=== PATIENT | male | born 1995 | race Caucasian/White ===

== ENCOUNTER 2024-08-06 09:52 | Inpatient (IN) | payer BC, MEDICAID ==
[~2024-08-06] VITALS: Ht 182.9 cm; Wt 79.3 kg
[2024-08-06] MEDS: ADENOSINE 6 MG/2 ML INJ IV ONE ×3 (10:15→10:19)
--- NOTE | 2024-08-06 10:20 | ECG ---
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
--- NOTE | 2024-08-06 10:46 | ED.PDOC ---
History of Present Illness HPI Comments 29-year-old male with PMHx Anxiety presents with a chief complaint of palpitations and anxiety. Patient states that onset of symptoms began at 0530 after he worked out. Patient reports that he did not drink any caffeine this morning, nor did he take any pre-workout supplementals. Patient mentions that this has happened to him twice before and he states that he thought it was anxiety. Patients HR is in the 220's. Chief Complaint: Chest Pain Time Seen by MD: 10:01 Primary Care Provider: LUZ Blake Notes: Medications, Allergies Allergies: Coded Allergies: Penicillins (Verified Allergy, Unknown, 07/17/23) Information Source: Patient Mode of Arrival: Ambulatory Severity: Moderate Timing: Hours Duration: Since onset Prehospital treatment: None Past Medical History PAST MEDICAL HISTORY: Anxiety Surgical History: Denies all surgeries Family History Family History: Reviewed,noncontributory to illness Social History Smoker: Non-Smoker Alcohol: Occasionally Drugs: Denies Drug Use Lives In: Home Constitutional: denies: chills, diaphoresis, fatigue, fever, malaise, sweats, weakness, others EENTM: denies: blurred vision, double vision, ear bleeding, ear discharge, ear drainage, ear pain, ear ringing, eye pain, eye redness, hearing loss, mouth pain, mouth swelling, nasal discharge, nose bleeding, nose congestion, nose pain, photophobia, tearing, throat pain, throat swelling, voice changes, others Respiratory: denies: cough, hemoptysis, orthopnea, SOB at rest, shortness of breath, SOB with excertion, stridor, wheezing, others Cardiovascular: reports: others (SVT); denies: chest pain, dizzy spells, diaphoresis, Dyspnea on exertion, edema, irregular heart beat, left arm pain, lightheadedness, palpitations, PND, syncope Gastrointestinal: denies: abdomen distended, abdominal pain, blood streaked bowels, constipated, diarrhea, dysphagia, difficulty swallowing, hematemesis, melena, nausea, poor appetite, poor fluid intake, rectal bleeding, rectal pain, vomiting, others Genitourinary: denies: burning, dysuria, flank pain, frequency, hematuria, incontinence, penile discharge, penile sore, pain, testicle pain, testicle swelling, urgency, others Neurological: denies: dizziness, fainting, headache, left sided numbness, left sided weakness, numbness, paresthesia, pre-existing deficit, right sided numbness, right sided weakness, seizure, speech problems, tingling, tremors, weakness, others Musculoskeletal: denies: back pain, gout, joint pain, joint swelling, muscle pain, muscle stiffness, neck pain, others Integumetry: denies: bruises, change in color, change in hair/nails, dryness, laceration, lesions, lumps, rash, wounds, others Allergic/Immunocompromised: denies: Difficulty Healing, Frequent Infections, Hives, Itching, others Hematologic/Lymphatic: denies: anemia, blood clots, easy bleeding, easy bruising, swollen glands, others Endocrine: denies: excessive hunger, excessive sweating, excessive thirst, excessive urination, flushing, intolerance to cold, intolerance to heat, unexplained weight gain, unexplained weight loss, others Psychiatric: reports: anxiety; denies: bipolar disorder, depression, hopeless, panic disorder, schizophrenia, sleepless, suicidal, others All Other Systems: Reviewed and Negative Physical Exam General Appearance: No Apparent Distress, Thin, Other (ANXIOUS ) HEENT: Normal ENT Inspection, Pharynx Normal, TMs Normal Neck: Full Range of Motion, Non-Tender, Normal, Normal Inspection Respiratory: Chest Non-Tender, Lungs Clear, No Accessory Muscle Use, No Respiratory Distress, Normal Breath Sounds Cardiovascular: No Edema, No JVD, No Murmur, No Gallop, Normal Peripheral Pulses, Regular Rate/Rhythm Breast Exam: Deferred Gastrointestinal: No Organomegaly, Non Tender, No Pulsatile Mass, Normal Bowel Sounds, Soft Genitalia: Deferred Pelvic: Deferred Rectal: Deferred Extremities: No calf tenderness, Normal capillary refill, Normal inspection, Normal range of motion, Non-tender, No pedal edema Musculoskeletal : Apperance: Normal Neurologic: Alert, legal process specialist II-XII nml as Tested, No Motor Deficits, Normal Affect, Normal Mood, No Sensory Deficits Cerebellar Function: Normal Reflexes: Normal Skin: Dry, Normal Color, Warm Lymphatic: No Adenopathy Was a procedure done? Was a procedure done?: No Differential Dx Considerations may include: SVT, electrolyte abnormality, infectious etiology who X-Ray, Labs, Meds, VS Vital Signs Date Time Temp Pulse Resp B/P (MAP) Pulse Ox O2 Delivery O2 Flow Rate FiO2 6/16/25 13:05 109 08/06/24 12:00 104 08/06/24 10:17 125 08/06/24 10:10 97.9 209 26 161/75 (103) 98 97.9 08/06/24 09:59 200 Lab Test 08/06/24 11:42 08/06/24 10:14 Range/Units Troponin I High Sensitivity 40 9 </=54 ng/L White Blood Count 8.0 4.4-10.8 10^3/uL Red Blood Count 5.60 4.5-5.90 10^6/uL Hemoglobin 17.1 13.5-17.5 g/dL Hematocrit 48.5 41.0-53.0 % Mean Corpuscular Volume 86.6 80.0-100.0 fL Mean Corpuscular Hemoglobin 30.5 28.0-32.0 pg Mean Corpuscular Hemoglobin Concent 35.2 32.0-36.0 g/dL Red Cell Distribution Width 13.2 11.8-14.3 % Platelet Count 252 140-450 10^3/uL Mean Platelet Volume 7.2 6.9-10.8 fL Neutrophils (%) (Auto) 66.4 37.0-80.0 % Lymphocytes (%) (Auto) 24.2 10.0-50.0 % Monocytes (%) (Auto) 6.7 0.0-12.0 % Eosinophils (%) (Auto) 2.2 0.0-7.0 % Basophils (%) (Auto) 0.5 0.0-2.0 % Neutrophils # (Auto) 5.3 1.6-8.6 10 ^3/uL Lymphocytes # (Auto) 1.9 0.4-5.4 10 ^3/uL Monocytes # (Auto) 0.5 0-1.3 10 ^3/uL Eosinophils # (Auto) 0.2 0-0.8 10 ^3/uL Basophils # (Auto) 0 0-0.2 10 ^3/uL Nucleated Red Blood Cells 0.2 % Sodium Level 142 136-145 mmol/L Potassium Level 3.4 L 3.5-5.1 mmol/L Chloride Level 105 98-107 mmol/L Carbon Dioxide Level 25 20-31 mmol/L Anion Gap 12 5-15 Blood Urea Nitrogen 8 L 9-23 mg/dL Creatinine 1.25 0.700-1.30 mg/dL Glomerular Filtration Rate Calc 80 >90 mL/min BUN/Creatinine Ratio 6.4 L 10.0-20.0 Serum Glucose 125 H 74-106 mg/dL Calcium Level 10.2 8.7-10.4 mg/dL Current Medications Medications (Trade) Dose Ordered Sig/Sherrie Route Start Time Stop Time Status Last Admin Adenosine (Adenosine) 6 mg ONCE ONCE IV 08/06/24 10:45 08/06/24 10:46 DC 08/06/24 10:15 Adenosine (Adenosine) 12 mg ONCE ONCE IV 08/06/24 10:45 08/06/24 10:46 DC 08/06/24 10:16 Time of 1ST Reevaluation: 10:31 Reevaluation 1ST: Unchanged Patient Education/Counseling: Diagnosis, Treatment, Need For Follow Up Family Education/Counseling: Diagnosis, Treatment, Need For Follow Up Departure 1 Departure Time of Disposition: 13:35 (Patient presented SVT. Patient received adenosine x2 and his symptoms resolved. We will discharge patient with outpatient follow up) Impression: Primary Impression: SVT (supraventricular tachycardia) Disposition: 01 HOME / SELF CARE / HOMELESS Condition: Stable Additional Instructions: You has supraventricular tachycardia. We gave you adenosine to convert your heart back to normal sinus rhythm. It is important to stay well hydrated and well rested. You should follow up with the regular doctor next week. If your symptoms worsen or if any other concerns please return to the emergency room. Discharged With: Self Critical Care Note Critical Care Time?: Yes Critical care comment: SVT Authorized and Performed by: Javier Lazo MD Total critical care time: Approximately 37 minutes Due to a high probability of clinically significant, life threatening deterioration, the patient required my highest level of preparedness to intervene emergently and I personally spent this critical care time directly and personally managing the patient. This critical care time included obtaining a history; examining the patient; pulse oximetry; ordering and review of studies; arranging urgent treatment with development of a management plan; evaluation of patient's response to treatment; frequent reassessment; and, discussions with other providers. This critical care time was performed to assess and manage the high probability of imminent, life-threatening deterioration that could result in multi-organ failure. It was exclusive of separately billable procedures and treating other patients and teaching time. Please see my other sections and the rest of the note for further information on patient assessment and treatment. Stability Stability form required: No Heart Score Heart Score: Heart Score Response (Comments) Value History N/A 0 EKG N/A 0 Age N/A 0 Risk Factors N/A 0 Troponin N/A 0 Total 0 I personally scribed for JAVIER LAZO MD ([email or web address]) on 08/06/24 at 10:46. Electronically submitted by Chester Crabtree ([email or web address]). JAVIER LAZO MD Aug 06, 2024 10:46
--- NOTE | 2024-08-06 10:53 | DVH ---
CHEST RADIOGRAPH Indication: palpitations Technique: Single frontal view of the chest was obtained COMPARISON: None FINDINGS: Lines and Tubes: None Lungs: Clear Pleura: No effusion. No pneumothorax. Cardiomediastinal contours: Unremarkable Bones: Unremarkable IMPRESSION: No acute disease.
[2024-08-06 11:36] LABS: Chloride 105 mmol/L (98-107); Sodium 142 mmol/L (136-145)
[2024-08-06 11:37] LABS: Anion Gap 12 (5-15); Calcium 10.2 mg/dL (8.7-10.4); Carbon Dioxide 25 mmol/L (20-31)
[2024-08-06 11:38] LABS: Potassium 3.4 mmol/L (3.5-5.1)
[2024-08-06 11:41] LABS: Basophils # (auto) 0 10 ^3/uL (0-0.2); Basophils % (auto) 0.5 % (0.0-2.0); Eosinophils # (auto) 0.2 10 ^3/uL (0-0.8); Eosinophils % (auto) 2.2 % (0.0-7.0); Hematocrit 48.5 % (41.0-53.0); Hemoglobin 17.1 g/dL (13.5-17.5); Lymphocytes # (auto) 1.9 10 ^3/uL (0.4-5.4); Lymphocytes % (auto) 24.2 % (10.0-50.0); Mean Corpuscular Hemoglobin 30.5 pg (28.0-32.0); Mean Corpuscular Hgb Conc. 35.2 g/dL (32.0-36.0); Mean Corpuscular Volume 86.6 fL (80.0-100.0); Monocytes # (auto) 0.5 10 ^3/uL (0-1.3); Monocytes % (auto) 6.7 % (0.0-12.0); Neutrophils # (auto) 5.3 10 ^3/uL (1.6-8.6); Neutrophils % (auto) 66.4 % (37.0-80.0); Nucleated Red Blood Cells % 0.2 %; Platelet Count (auto) 252 10^3/uL (140-450); Red Cell Distribution Width 13.2 % (11.8-14.3)
[2024-08-06 11:42] LABS: BUN/Creatinine Ratio 6.4 (10.0-20.0)
[2024-08-06 11:43] LABS: Blood Urea Nitrogen 8 mg/dL (9-23); Glucose 125 mg/dL (74-106)
--- NOTE | 2024-08-06 14:15 | ECG ---
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
--- NOTE | 2024-08-06 14:30 | ED.PDOC ---
Departure 1 Departure Time of Disposition: 14:29 (Upon discharge patient is stood up and became even more tachycardic and felt like he was going to pass out. Patient is very anxious about it. We will admit patient for further workup and expert consultation) Impression: Primary Impression: SVT (supraventricular tachycardia) Additional Impressions: Near syncope Generalized weakness Disposition: 09 ADMITTED INPATIENT Admit to: Med Surg Condition: Serious Discharged With: Self JAVIER LAZO MD Aug 06, 2024 14:30
[2024-08-06] MEDS ORDERED: ACETAMINOPHEN 325 MG TAB PO PRN (15:30)
[2024-08-06] MEDS ORDERED: HYDROcodone-ACET 5/325MG TAB PO PRN (15:30)
[2024-08-06] MEDS ORDERED: hydrALAZINE HCL 20 MG/ML VL IV PRN (15:30)
[2024-08-06] MEDS ORDERED: DOCUSATE SOD 100 MG CAP PO PRN (15:30)
[2024-08-06] MEDS ORDERED: ONDANSETRON HCL 4 MG/2 ML VIAL IV PRN (15:30)
[2024-08-06] MEDS: POTASSIUM CHL 20 Meq TABLET PO ONE (15:48)
--- NOTE | 2024-08-06 16:17 | DVHHP2 ---
History of Present Illness Reason for Visit: SVT (supraventricular tachycardia) History of Present Illness The patient is a 29-year-old male with past medical history of anxiety and depression who presented to [facility] ED with complaint of palpitations and anxiety. Patient was seen and evaluated in the ED, laboratory data shows WBC 8.0, platelets 252, sodium 142, potassium 3.4, BUN 8, creatinine 1.25, glucose 125, calcium 10.2, troponin 40, blood pressure 161/75, heart rate 200 trending down to 104, temperature 97.9 F, O2 saturation 98% on room air. Patient was given IV adenosine 12 mg IV x1, please see medication orders section in the computer. On my assessment, patient denied chest pain, no headache, no dizziness, no diaphoresis, no shortness of breath, no nausea, no vomiting, no fever, no chills. Patient was admitted for further evaluation and medical management. Past Medical History Anxiety, Depression Past Surgical History Denies all surgeries Family History Reviewed, noncontributory to the management of this case. Past Social History The patient lives at home, denies smoking, alcohol or illicit drugs abuse. Review of Systems Constitutional: Yes: Weakness; No: Fever, Chills, Sweats, Malaise, Other Eyes: No: Pain, Vision change, Conjunctivae inflammation, Eyelid inflammation, Other, Redness ENT: No: Ear pain, Ear discharge, Nose pain, Nose discharge, Nose congestion, Mouth pain, Mouth swelling, Throat pain, Throat swelling, Other Respiratory: No: Cough, Dry, Shortness of breath, SOB with excertion, Wheezing, Hemoptysis, Pleuritic Pain, Sputum, Wheezing, Other Cardiovascular: Palpitations, Other (SVT); No: Chest Pain, Orthopnea, Paroxysmal Noc. Dyspnea, Edema, Lt Headedness Gastrointestinal: No: Nausea, Vomiting, Abdominal Pain, Diarrhea, Constipation, Melena, Hematochezia, Other Genitourinary: No Dysuria, No Frequency, No Incontinence, No Hematuria, No Retention, No Other Musculoskeletal: No: other, neck pain, shoulder pain, arm pain, back pain, hand pain, leg pain, foot pain Skin: No: Rash, Lesions, Jaundice, Bruising, Other Neurological: No: Weakness, Numbness, Incoordination, Change in speech, Confusion, Seizures, Other Other Psychiatric: reports: anxiety; denies: bipolar disorder, depression, hopeless, panic disorder, schizophrenia, sleepless, suicidal, others Allergies: Coded Allergies: Penicillins (Verified Allergy, Unknown, 07/17/23) Medications Current Medications Medications Dose Ordered Sig/Sherrie Route Start Time Stop Time Status Last Admin Dose Admin Sertraline HCl 25 mg DAILY PO 08/07/24 10:00 Lorazepam 0.5 mg Q8HP PRN IV 08/06/24 15:30 Metoprolol Tartrate 50 mg BID PO 08/06/24 22:00 Hydralazine HCl 10 mg Q6HP PRN IV 08/06/24 15:30 Sodium Chloride 10 ml Q8HR IV 08/06/24 22:00 Acetaminophen/ Hydrocodone Bitart 1 tab Q4HP PRN PO 08/06/24 15:30 Ondansetron HCl 4 mg Q4HP PRN IV 08/06/24 15:30 Docusate Sodium 100 mg BIDPRN PRN PO 08/06/24 15:30 Acetaminophen 650 mg Q6HP PRN PO 08/06/24 15:30 Exam Vital Signs Vital Signs Date Time Temp Pulse Resp B/P (MAP) Pulse Ox O2 Delivery O2 Flow Rate FiO2 08/06/24 13:05 109 08/06/24 10:10 97.9 26 161/75 (103) 98 97.9 General Appearance: Alert, Oriented X3, Cooperative, No acute distress HEENT: Atraumatic, PERRLA, EOMI, Mucous membr. moist/pink Respiratory: Clear to auscultation, Normal air movement Cardiovascular: Regular rate, Normal S1, Normal S2, No murmurs Abdominal: Normal bowel sounds, Soft, No tenderness, No hepatospenomegaly, No masses Extremities: No clubbing, No cyanosis, No edema, Normal pulses, No tenderness/swelling Skin: No rashes, No breakdown, No significant lesion Neuro: Normal gait, Normal speech, Strength at 5/5 X4 ext, Normal tone, Sensation intact, Cranial nerves 3-12 NL, Reflexes 2+ Psych/Mental Status: Mental status NL, Mood NL Labs/Xrays Labs Test 08/06/24 11:42 08/06/24 10:14 Range/Units Troponin I High Sensitivity 40 </=54 ng/L White Blood Count 8.0 4.4-10.8 10^3/uL Red Blood Count 5.60 4.5-5.90 10^6/uL Hemoglobin 17.1 13.5-17.5 g/dL Hematocrit 48.5 41.0-53.0 % Mean Corpuscular Volume 86.6 80.0-100.0 fL Mean Corpuscular Hemoglobin 30.5 28.0-32.0 pg Mean Corpuscular Hemoglobin Concent 35.2 32.0-36.0 g/dL Red Cell Distribution Width 13.2 11.8-14.3 % Platelet Count 252 140-450 10^3/uL Mean Platelet Volume 7.2 6.9-10.8 fL Neutrophils (%) (Auto) 66.4 37.0-80.0 % Lymphocytes (%) (Auto) 24.2 10.0-50.0 % Monocytes (%) (Auto) 6.7 0.0-12.0 % Eosinophils (%) (Auto) 2.2 0.0-7.0 % Basophils (%) (Auto) 0.5 0.0-2.0 % Neutrophils # (Auto) 5.3 1.6-8.6 10 ^3/uL Lymphocytes # (Auto) 1.9 0.4-5.4 10 ^3/uL Monocytes # (Auto) 0.5 0-1.3 10 ^3/uL Eosinophils # (Auto) 0.2 0-0.8 10 ^3/uL Basophils # (Auto) 0 0-0.2 10 ^3/uL Nucleated Red Blood Cells 0.2 % Sodium Level 142 136-145 mmol/L Potassium Level 3.4 L 3.5-5.1 mmol/L Chloride Level 105 98-107 mmol/L Carbon Dioxide Level 25 20-31 mmol/L Anion Gap 12 5-15 Blood Urea Nitrogen 8 L 9-23 mg/dL Creatinine 1.25 0.700-1.30 mg/dL Glomerular Filtration Rate Calc 80 >90 mL/min BUN/Creatinine Ratio 6.4 L 10.0-20.0 Serum Glucose 125 H 74-106 mg/dL Calcium Level 10.2 8.7-10.4 mg/dL PATIENT: ELISE GARCIA RYANACCT: [id number] UNIT: [id number] : 1995 LOC: ER ROOM / BED: / AGE / SEX: 29 / M ADM STATUS: REG ER SERVICE 1020 ORDERING PHYSICIAN: JAVIER LAZO MD PROCEDURE(s): CXRP - CHEST PORTABLE REASON: palpitations ORDER NUMBER(s): [id number], ACCESSION NUMBER(s): [id number] CHEST RADIOGRAPH Indication: palpitations Technique: Single frontal view of the chest was obtained COMPARISON: None FINDINGS: Lines and Tubes: None Lungs: Clear Pleura: No effusion. No pneumothorax. Cardiomediastinal contours: Unremarkable Bones: Unremarkable IMPRESSION: No acute disease. Assessment/Plan Assessment/Plan SVT (supraventricular tachycardia) Generalized weakness Plan 1. Admit to telemetry unit 2. Breathing treatment 3. Pain control management 4. Management of fluids and electrolytes 5. Consultation for Cardiology 6. Diagnostic tests chest x-ray 7. DVT prophylaxis on SCDs 8. Repeat labs CBC, CMP in a.m. 9. Continue with current medical management 10. Treatment plan discussed with patient and RN. Patient verbalized understanding. Plan discussed with: Patient, Other (RN) My Orders Orders - SILVANA BAXTER DNP Procedure Category Date Status Time Sertraline Hcl PHA 08/07/24 In Process (Zoloft) 10:00 Lorazepam 2mg/Ml Inj PHA 08/06/24 In Process (Ativan Inj) 15:30 Metoprolol Tartrate PHA 08/06/24 In Process Tablet (Lopressor Ta 22:00 Hydralazine Injection PHA 08/06/24 In Process (Apresoline Inject 15:30 Allergies JAY JAY 08/06/24 In Process 15:19 Code Status CODE 08/06/24 Transmitted 15:19 Sodium Chloride Lock PHA 08/06/24 In Process (Saline Lock Ns) 22:00 Oxygen Per Hour RT 08/06/24 Transmitted 15:19 Hydrocodone-Acet PHA 08/06/24 In Process 5/325mg Tab ([place] 15:30 Ondansetron Hcl PHA 08/06/24 In Process (Zofran) 15:30 Docusate Sodium PHA 08/06/24 In Process Capsule (Colace 15:30 Complete Blood Count LAB 08/07/24 Verified 04:00 Comprehensive LAB 08/07/24 Verified Metabolic Panel 04:00 Cardiac DIET 08/06/24 Transmitted Diet-2gna,Lofat,Lochol Dinner Condition: Serious JAY JAY 08/06/24 In Process 15:19 Acetaminophen Tablet PHA 08/06/24 In Process (Tylenol Tablet) 15:30 Bedrest With Bathroom JAY JAY 08/06/24 In Process Privileg 15:19 Sequential JAY JAY 08/06/24 In Process Compression Device Troponin-I Hs LAB 08/06/24 Logged 20:00 Problem List: (1) SVT (supraventricular tachycardia) (2) Generalized weakness Date of Service: Aug 06, 2024 Billing Provider: SILVANA BAXTER DNP Common Visit Codes: [id number] INP/OBS CARE (HIGH) SILVANA BAXTER DNP Aug 06, 2024 16:17
[2024-08-06] MEDS ORDERED: NITROGLYCERIN 0.4 MG SL TAB SL PRN (16:30)
[2024-08-06] MEDS ORDERED: MORPHINE SULFATE INJ 2 MG/ml SYRG IV PRN (16:30)
[2024-08-06 19:59] VITALS: PULSE 88; RESP 18; O2SAT 96
[2024-08-06] MEDS: LORazepam 2MG/ML-1ML VIAL IV PRN (20:23)
[2024-08-06] MEDS: METOPROLOL TARTRATE 50 MG TAB PO SCH (21:10)
[2024-08-06] MEDS: SODIUM CHLOR 0.9% PF (SALINE LOCK) 10ML VIAL/SYR IV SCH (21:10)
[2024-08-07 04:20] LABS: Basophils # (auto) 0.1 10 ^3/uL (0-0.2); Basophils % (auto) 0.7 % (0.0-2.0); Eosinophils # (auto) 0.1 10 ^3/uL (0-0.8); Eosinophils % (auto) 1.2 % (0.0-7.0); Hematocrit 47.3 % (41.0-53.0); Hemoglobin 16.6 g/dL (13.5-17.5); Lymphocytes # (auto) 1.9 10 ^3/uL (0.4-5.4); Mean Corpuscular Hemoglobin 30.6 pg (28.0-32.0); Mean Corpuscular Hgb Conc. 35.1 g/dL (32.0-36.0); Mean Corpuscular Volume 87.1 fL (80.0-100.0); Monocytes # (auto) 0.7 10 ^3/uL (0-1.3); Monocytes % (auto) 9.1 % (0.0-12.0); Nucleated Red Blood Cells % 0.1 %; Platelet Count (auto) 222 10^3/uL (140-450); Red Blood Cells 5.43 10^6/uL (4.5-5.90); White Blood Cell 7.7 10^3/uL (4.4-10.8)
[2024-08-07 04:33] LABS: Alanine Aminotransferase 28 U/L (7-40); Albumin 4.7 g/dL (3.2-4.8); Alkaline Phosphatase 49 U/L (46-116); Anion Gap 10 (5-15); Aspartate Aminotransferase 19 U/L (<34); BUN/Creatinine Ratio 6.2 (10.0-20.0); Calcium 9.9 mg/dL (8.7-10.4); Carbon Dioxide 25 mmol/L (20-31); Chloride 106 mmol/L (98-107); Glucose 100 mg/dL (74-106); Potassium 3.8 mmol/L (3.5-5.1); Sodium 141 mmol/L (136-145); Total Protein 6.8 g/dL (5.7-8.2)
[2024-08-07 04:34] LABS: Bilirubin, Total 4.2 mg/dL (0.2-1.0); Blood Urea Nitrogen 6 mg/dL (9-23)
--- NOTE | 2024-08-07 07:08 | ECG ---
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
[2024-08-07 07:30] VITALS: PULSE 85; RESP 18; O2SAT 97
[2024-08-07] MEDS: SERTRALINE HCL 50 MG TAB PO SCH (10:00)
[2024-08-07 11:15] VITALS: PULSE 89; RESP 13; O2SAT 99
--- NOTE | 2024-08-07 12:44 | ECG ---
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 Artifact in lead(s) V2 and baseline wander in lead(s) V2,V6 Electronically Signed On 08-07-2024 17:37:56 PDT by Nico Luna Please click the below link to view image of tracing.
--- NOTE | 2024-08-07 14:42 | DVHPN2 ---
Progress Note Date Seen: Aug 07, 2024 Medical Necessity Reason Pt with a Central, PICC or Fol: No Subjective Patient reports: No new complaints Review of Systems: HEENT:Normal, CVS:Normal, RESPIRATORY:Normal, GI:Normal, :Normal, MSK:Normal, NEURO:Normal Objective vital signs Vital Sign Date Time Temp Pulse Resp B/P (MAP) Pulse Ox O2 Delivery O2 Flow Rate FiO2 08/07/24 13:00 80 12 103/59 (74) 97 08/07/24 11:15 Room Air* 0 21 08/07/24 07:30 98.1 98.1 medications Current Medications Medications Dose Ordered Sig/Sherrie Route Start Time Stop Time Status Last Admin Dose Admin Sertraline HCl 25 mg DAILY PO 08/07/24 10:00 Lorazepam 0.5 mg Q8HP PRN IV 08/06/24 15:30 08/07/24 13:22 0.5 MG Metoprolol Tartrate 50 mg BID PO 08/06/24 22:00 08/07/24 10:27 50 MG Hydralazine HCl 10 mg Q6HP PRN IV 08/06/24 15:30 Sodium Chloride 10 ml Q8HR IV 08/06/24 22:00 08/07/24 14:04 10 ML Acetaminophen/ Hydrocodone Bitart 1 tab Q4HP PRN PO 08/06/24 15:30 Ondansetron HCl 4 mg Q4HP PRN IV 08/06/24 15:30 Docusate Sodium 100 mg BIDPRN PRN PO 08/06/24 15:30 Acetaminophen 650 mg Q6HP PRN PO 08/06/24 15:30 Nitroglycerin 0.4 mg Q5MINP PRN SL 08/06/24 16:30 Morphine Sulfate 2 mg Q30M PRN IV 08/06/24 16:30 Examination: GENERAL:Normal, HEENT:Normal, NECK:Normal, LUNGS:Normal, CVS:Normal, ABDOMEN:Normal, MSK:Normal, SKIN:Normal, NEURO:Normal, :Normal laboratory and microbiology Laboratory Tests 08/07/24 04:04 Test 08/07/24 04:04 Range/Units Serum Glucose 100 74-106 mg/dL Problem List/Assessment/Plan Problem List/Assessment/Plan #1 svt: lopressor, tsh, echo #2 alcohol abuse #3 tobacco abuse: advised to quit, time spent 11 mins Plan discussed with: Patient My Orders My Orders Orders - FREIDA JANG MD Procedure Category Date Status Time Echo 2d Mode Cardiac US 08/07/24 Logged DOP 14:38 * Cardiology Consult CONS 08/07/24 Transmitted 14:38 Date of Service: Aug 07, 2024 Billing Provider: FREIDA JANG MD Common Visit Codes: [id number] INP/OBS CARE(HIGH) Secondary Visit Codes: [id number] CHNG SMOKING >10MIN FREIDA JANG MD Aug 07, 2024 14:42
[2024-08-07 18:08] VITALS: BP 120/55; PULSE 89; TEMP 98.1
[2024-08-07 18:11] VITALS: BP 122/91; PULSE 99; RESP 19; TEMP 98.3; O2SAT 96
[2024-08-07] MEDS ORDERED: HYDRX10T PO (18:30)
[2024-08-07 20:00] VITALS: PULSE 89
[2024-08-07 21:00] VITALS: BP 137/76; PULSE 94; RESP 19; TEMP 98; O2SAT 99
[2024-08-07] MEDS: METOPROLOL TARTRATE 25 MG TAB PO SCH (21:45)
[2024-08-08 05:00] VITALS: BP 126/78; PULSE 90; RESP 19; TEMP 97.8; O2SAT 97
[2024-08-08 08:00] VITALS: PULSE 72
[2024-08-08 08:05] LABS: Amphetamine Screen, Urine Neg (NEGATIVE); Barbiturate Scree,Urine Neg (NEGATIVE); Benzodiazephine Screen, Urine Neg (NEGATIVE); Cannabinoid Screen, Urine Neg (NEGATIVE); Cocaine Screen, Urine Neg (NEGATIVE); Opiate Scree,Urine Neg (NEGATIVE); Phencyclidine Screen, Urine Neg (NEGATIVE)
[2024-08-08 09:00] VITALS: BP 128/87; PULSE 75; RESP 14; TEMP 97.8; O2SAT 100
--- NOTE | 2024-08-08 09:34 | DVHSR ---
APPROVED REPORT EXAM: LIMITED Two-dimensional and M-mode echocardiogram with Doppler and color Doppler. Blood Pressure: 103/53 mmHg INDICATION SVT RISK FACTORS Height: 6'0, Weight: 170 DIMENSIONS LVDd4.2 (3.8-5.7cm)LA (2D)3.5 (1.9-4.0cm)Aortic Root3.1 (2.0-3.7cm) LVDs2.9 (2.5-4.0cm)LA (MM) (1.9-4.0cm)Aortic Cusp Exc2.0 (1.5-2.0cm) EF (%) 55.0 (55-70%)Rt. Atrium4.0 (1.9-4.0cm)Asc. Aorta cm IVSd0.8 (0.7-1.1cm)RV (D) (1.8-2.4cm) PWd1.0 (0.7-1.1cm) Mitral Valve MitralMitral Stenosis E wave0.71m/sMV Mean GR.mmHg A wave0.52m/sMV Peak GR.mmHg E/A ratio1.42D MVAcm2 DECEL [id number] 1/2 Timems Aortic Valve Aortic ValveAortic Stenosis V10.68m/Shae Mean GR.mmHg V20.91m/Shae Peak GR.3mmHg LVOT Diameter2.1 (1.8-2.4cm)Doppler AVA2.59cm2 Pulmonic Valve V20.70m/s Tricuspid Valve TR Velocity2.32m/s [id number] Other Information Technically limited study due to body habitus.patient position. Conclusion LV EF IS 65% AND IS NORMAL NORMAL VALVES NO EFFUSION NORMAL RV FUNCTION AND SIZE
--- NOTE | 2024-08-08 11:21 | DVHCONRES ---
Date Seen: Aug 08, 2024 Resident Creating Document: DISHA ROBINS RESIDENT Referring Physician Dr. Jang Reason for Consultation SVT History of Present Illness Patient is a 29-year-old male with past medical history of Gilbert's syndrome, hypertension, anxiety, who comes in due to palpitations. According to the patient, yesterday on 08/07/24 while he was working out he started noticing some palpitations which progressively got worse despite him stopping his workout, he noted his heart rate to be 220 with an increased blood pressure which is what prompted this visit to the hospital. Patient notes his heart rate goes up every time he engages in any activity. Review of systems is negative. EKG showed sinus tachycardia patient was given IV adenosine. Serial troponins were 9, 40 Past Medical History Gilbert's syndrome, hypertension, anxiety Past Surgical History Denies Family History: Colon cancer GRAND FATHER MOM'S SIDE Diabetes mellitus GRAND FATHER MOM'S SIDE Social History Smoking: Quit 7 months ago, prior to that was smoking 3 cigarettes per day for 3 years Alcohol: Up to 6 drinks in 1 sitting few times a week, roughly 14-16 drinks per week Drugs: Denies Allergies: Coded Allergies: Peanut-containing Drug Products (Verified Allergy, Severe, 08/07/24) Penicillins (Verified Allergy, Unknown, 07/17/23) Home Meds Active Scripts Metoprolol Succinate (Toprol Xl) 25 Mg Tab, 25 MG PO DAILY for 30 Days, #30 TAB 3 Refills Prov:FREIDA JANG MD 08/08/24 Reported Medications Hydroxyzine Hcl (Hydroxyzine Hcl) 10 Mg Tab, 1 TAB PO DAILY 08/07/24 Current Medications Current Medications Medications (Trade) Dose Ordered Sig/Sherrie Route PRN Reason Start Time Stop Time Status Last Admin Metoprolol Tartrate (Lopressor Tablet) 25 mg BID PO 08/07/24 22:00 08/08/24 08:48 Review of Systems Patient seen and examined at bedside. Patient is alert and oriented to time, place person and responding to all questions. Eyes: No Pain, No Vision change, No Conjunctivae inflammation, No Eyelid inflammation, No Other, No Redness ENT: No Ear pain, No Ear discharge, No Nose pain, No Nose discharge, No Nose congestion, No Mouth pain, No Mouth swelling, No Throat pain, No Throat swelling, No Other Cardiovascular: No Chest Pain, No Palpitations, No Orthopnea, No Paroxysmal No Dyspnea, No Edema, No Lt Headedness, No Other Respiratory: No Cough, No Dry, No Shortness of breath, No SOB with exertion, No Wheezing, No Hemoptysis, No Pleuritic Pain, No Sputum, No Other Gastrointestinal: No Nausea, No Vomiting, No Abdominal Pain, No Diarrhea, No Constipation, No Melena, No Hematochezia, No Other Genitourinary: No Dysuria, No Frequency, No Incontinence, No Hematuria, No Retention, No Other Musculoskeletal: No other, No neck pain, No shoulder pain, No arm pain, No back pain, No hand pain, No leg pain, No foot pain Skin: No Rash, No Lesions, No Jaundice, No Bruising, No Other Vital Signs Vital Signs Date Time Temp Pulse Resp B/P (MAP) Pulse Ox O2 Delivery O2 Flow Rate FiO2 08/08/24 09:00 97.8 75 14 128/87 (101) 100 97.8 08/08/24 07:33 Room Air* 0 21 Physical Exam General Appearance: Cooperative. Well developed. Well nourished. NAD Head Exam: Normal inspection Neck Exam: Normal inspection. Non-tender. Normal alignment Pulmonary/Respiratory: Chest non-tender. Clear bilateral breath sounds, no crackles, no wheezing. Cardiovascular/Chest: Regular rate and rhythm. No murmurs. No JVD. Peripheral Pulses: 2+ Radial (R). 2+ Radial (L). 2+ Pedal (R). 2+ Pedal (L) Abdominal Exam: Normal bowel sounds. Soft. normal abdomen, no visible veins, Nontender. No hepatospenomegaly. No masses Ankle Exam: Negative ankle edema Lower extremities: Negative lower extremity edema Neuro/Mental Status: A&O x4. Coherent. Thoughts/Psych: Normal thought pattern. Reports feeling more depressed and anxious than usual in the last 2 weeks, however, denies any suicidal ideation Skin Exam: Normal inspection. Normal color. Warm. Dry Labs/Diagnostic Data Labs Test 08/08/24 07:30 08/07/24 04:04 08/06/24 11:42 Range/Units Urine Opiates Screen Neg NEGATIVE Urine Fentanyl Screen Neg NEGATIVE Urine Barbiturates Screen Neg NEGATIVE Urine Phencyclidine Screen Neg NEGATIVE Urine Amphetamines Screen Neg NEGATIVE Urine Benzodiazepines Screen Neg NEGATIVE Urine Cocaine Screen Neg NEGATIVE Urine Cannabinoids Screen Neg NEGATIVE White Blood Count 7.7 4.4-10.8 10^3/uL Red Blood Count 5.43 4.5-5.90 10^6/uL Hemoglobin 16.6 13.5-17.5 g/dL Hematocrit 47.3 41.0-53.0 % Mean Corpuscular Volume 87.1 80.0-100.0 fL Mean Corpuscular Hemoglobin 30.6 28.0-32.0 pg Mean Corpuscular Hemoglobin Concent 35.1 32.0-36.0 g/dL Red Cell Distribution Width 13.0 11.8-14.3 % Platelet Count 222 140-450 10^3/uL Mean Platelet Volume 7.0 6.9-10.8 fL Neutrophils (%) (Auto) 65.0 37.0-80.0 % Lymphocytes (%) (Auto) 24.0 10.0-50.0 % Monocytes (%) (Auto) 9.1 0.0-12.0 % Eosinophils (%) (Auto) 1.2 0.0-7.0 % Basophils (%) (Auto) 0.7 0.0-2.0 % Neutrophils # (Auto) 5.0 1.6-8.6 10 ^3/uL Lymphocytes # (Auto) 1.9 0.4-5.4 10 ^3/uL Monocytes # (Auto) 0.7 0-1.3 10 ^3/uL Eosinophils # (Auto) 0.1 0-0.8 10 ^3/uL Basophils # (Auto) 0.1 0-0.2 10 ^3/uL Nucleated Red Blood Cells 0.1 % Sodium Level 141 136-145 mmol/L Potassium Level 3.8 3.5-5.1 mmol/L Chloride Level 106 98-107 mmol/L Carbon Dioxide Level 25 20-31 mmol/L Anion Gap 10 5-15 Blood Urea Nitrogen 6 L 9-23 mg/dL Creatinine 0.97 0.700-1.30 mg/dL Glomerular Filtration Rate Calc 108 >90 mL/min BUN/Creatinine Ratio 6.2 L 10.0-20.0 Serum Glucose 100 74-106 mg/dL Calcium Level 9.9 8.7-10.4 mg/dL Magnesium Level 2.1 1.6-2.6 mg/dL Total Bilirubin 4.2 H 0.2-1.0 mg/dL Aspartate Amino Transferase (AST) 19 <34 U/L Alanine Aminotransferase (ALT) 28 7-40 U/L Alkaline Phosphatase 49 46-116 U/L Total Protein 6.8 5.7-8.2 g/dL Albumin 4.7 3.2-4.8 g/dL Thyroid Stimulating Hormone (TSH) 4.55 0.55-4.78 uIU/mL Troponin I High Sensitivity 40 </=54 ng/L Assessment Supraventricular tachycardia Hypertension Anxiety Alcohol use disorder Plan: Normal serum magnesium, normal TSH, UDS negative Echocardiogram showed EF 65%. Normal valve. No effusion. Normal RV function and size. Continue metoprolol Counseled extensively about the harmful effects of alcohol on the heart Patient instructed to follow up with quality assurance monitor body in the outpatient for possible event monitor, patient and sister at bedside demonstrated understanding Thank you so much for the opportunity to consult on your patient. Cardiology team will follow the patient. In case of any questions or concerns please feel free to reach out. Plan discussed with Dr. Guillermo Plan discussed with: Patient, Other (Patient's sister at bedside, AMY Hernandez) Visit Coding Cardiology RES Date of Service: Aug 08, 2024 Billing Provider: JAVIER GUILLERMO Sr., MD Cardiology Common Codes: [id number] INP/OBS CARE (High) DISHA ROBINS RESIDENT Aug 08, 2024 11:21
[2024-08-08] MEDS ORDERED: METO25TA36 PO (11:45)
--- NOTE | 2024-08-08 11:46 | DVHDS2 ---
Discharge Summary Date of Admission Aug 06, 2024 at 16:16 Date of Discharge: Aug 08, 2024 Labs/Diagnostic Data: Laboratory Results Test 08/08/24 07:30 08/07/24 04:04 08/06/24 11:42 Urine Opiates Screen Neg (NEGATIVE) Urine Fentanyl Screen Neg (NEGATIVE) Urine Barbiturates Screen Neg (NEGATIVE) Urine Phencyclidine Screen Neg (NEGATIVE) Urine Amphetamines Screen Neg (NEGATIVE) Urine Benzodiazepines Screen Neg (NEGATIVE) Urine Cocaine Screen Neg (NEGATIVE) Urine Cannabinoids Screen Neg (NEGATIVE) White Blood Count 7.7 10^3/uL (4.4-10.8) Red Blood Count 5.43 10^6/uL (4.5-5.90) Hemoglobin 16.6 g/dL (13.5-17.5) Hematocrit 47.3 % (41.0-53.0) Mean Corpuscular Volume 87.1 fL (80.0-100.0) Mean Corpuscular Hemoglobin 30.6 pg (28.0-32.0) Mean Corpuscular Hemoglobin Concent 35.1 g/dL (32.0-36.0) Red Cell Distribution Width 13.0 % (11.8-14.3) Platelet Count 222 10^3/uL (140-450) Mean Platelet Volume 7.0 fL (6.9-10.8) Neutrophils (%) (Auto) 65.0 % (37.0-80.0) Lymphocytes (%) (Auto) 24.0 % (10.0-50.0) Monocytes (%) (Auto) 9.1 % (0.0-12.0) Eosinophils (%) (Auto) 1.2 % (0.0-7.0) Basophils (%) (Auto) 0.7 % (0.0-2.0) Neutrophils # (Auto) 5.0 10 ^3/uL (1.6-8.6) Lymphocytes # (Auto) 1.9 10 ^3/uL (0.4-5.4) Monocytes # (Auto) 0.7 10 ^3/uL (0-1.3) Eosinophils # (Auto) 0.1 10 ^3/uL (0-0.8) Basophils # (Auto) 0.1 10 ^3/uL (0-0.2) Nucleated Red Blood Cells 0.1 % Sodium Level 141 mmol/L (136-145) Potassium Level 3.8 mmol/L (3.5-5.1) Chloride Level 106 mmol/L (98-107) Carbon Dioxide Level 25 mmol/L (20-31) Anion Gap 10 (5-15) Blood Urea Nitrogen 6 mg/dL (9-23) Creatinine 0.97 mg/dL (0.700-1.30) Glomerular Filtration Rate Calc 108 mL/min (>90) BUN/Creatinine Ratio 6.2 (10.0-20.0) Serum Glucose 100 mg/dL (74-106) Calcium Level 9.9 mg/dL (8.7-10.4) Magnesium Level 2.1 mg/dL (1.6-2.6) Total Bilirubin 4.2 mg/dL (0.2-1.0) Aspartate Amino Transferase (AST) 19 U/L (<34) Alanine Aminotransferase (ALT) 28 U/L (7-40) Alkaline Phosphatase 49 U/L (46-116) Total Protein 6.8 g/dL (5.7-8.2) Albumin 4.7 g/dL (3.2-4.8) Thyroid Stimulating Hormone (TSH) 4.55 uIU/mL (0.55-4.78) Troponin I High Sensitivity 40 ng/L (</=54) Other Laboratory Tests 08/07/24 04:04 Brief Hx & Hospital Course: see dictated note Condition at Discharge: Good Final Diagnosis/Problems List svt Discharge Disposition: Home Discharge Instruct/Medications Diet: Cardiac 2g Na,low cholest Activity: No Restrictions, As Tolerated Follow Up/Referral: fu with pcp in 2 wks Medications: dc home if ok with cardiology script to pharmacy Discharge Statement: "Patient was advised to return to the ER or call 911 if any headaches, dizziness, shortness of breath, chest pain, abdominal pain, bleeding, fevers, or worsening of medical condition. Patient was counseled about treatment plan, medications, possible side effects, patientverbalized understanding. All questions were answered to the best of my ability. This discharge took greater then 30 minutes in planning, reviewing documentation, counseling the patient, and discussing with other team members." ASSESSMENT ASSESSMENT Assessment svt Date of Service: Aug 08, 2024 Billing Provider: FREIDA JANG MD Common Visit Codes: 32988-AYJ/OBS DISCH DAY >30min FREIDA JANG MD Aug 08, 2024 11:46
--- NOTE | 2024-08-08 11:54 | DVHDS ---
DATE OF DISCHARGE: 08/08/2024 The patient is a 29-year-old gentleman who was admitted with history of palpitations and elevated heart rate in the 200s. The patient has history of anxiety and depression. HOSPITAL COURSE: The patient's TSH was within normal limits. Troponin levels were negative. Tox screen was negative. The patient had echocardiogram that showed ejection fraction of 65%. The patient was seen in Cardiology consult. The patient will be discharged if cleared by Cardiology to be on Toprol-XL 25 mg daily and follow up with his primary in one week. He is asked to monitor his blood pressure and heart rate. FINAL DIAGNOSES: * SVT. * Questionable hypertension. * Depression/anxiety. Time spent in discharge planning and review of plan with the patient and nursing was 37 minutes. MD CHRIS Manzano/ANNALISE TID: [id number] RECEIPT: [id number]
[2024-08-08 12:29] LABS: Urine Bacteria None Seen /hpf (None Seen)
[2024-08-08 12:41] LABS: Urine Blood Negative /uL (Negative); Urine Clarity Clear (Clear); Urine Color Colorless (Yellow); Urine Protein, UAD Negative (Negative); Urine Specific Gravity 1.006 (1.001-1.035); Urine Squamous Epithelial Cell None Seen /hpf (<5); Urine Urobilinogen Normal (Negative); Urine pH 6.5 (5.0-9.0)
[2024-08-08 13:00] VITALS: BP 102/74; PULSE 84; RESP 16; TEMP 98.2; O2SAT 98
[2024-08-08 16:04] VITALS: BP 117/74; PULSE 87; TEMP 36.8
[2024-08-08 17:00] VITALS: BP 116/86; PULSE 82; RESP 16; TEMP 98; O2SAT 100
== END 2024-08-08 18:00 | disposition home or self-care (01) | DRG 201 ==
LOC: ER 09:52 → OVERFLOW 16:16 → TELE-EAST 17:47 → EAST 08-07 18:13 → TELE-EAST 08-07 18:20
PROVIDERS: ADMIT Internal Medicine; ATTEND Internal Medicine
DX: I47.10 Supraventricular tachycardia, unspecified (principal); F10.10 Alcohol abuse, uncomplicated; F32.A Depression, unspecified; I10 Essential (primary) hypertension; F41.9 Anxiety disorder, unspecified; Z72.0 Tobacco use; Z88.0 Allergy status to penicillin; Z91.010 Allergy to peanuts
CPT/HCPCS: 36415; 71045; 80048; 80053; 80307; 81001; 83735; 84443; 84484; 85025; 93005; 93306; 96374; 96375; 99291; G0378; J0153

== ENCOUNTER 2024-08-25 19:33 | Emergency (ER) | payer MEDICAID ==
[~2024-08-25] VITALS: Ht 182.9 cm; Wt 79.5 kg
[~2024-08-25 19:33] MED LIST: HYDRX10T PO; METO25TA36 PO
--- NOTE | 2024-08-25 19:49 | ED.PDOC ---
History of Present Illness HPI Comments PT PRESENTED TO ED FOR INTERMITTENT GENERALIZED WEAKNESS X5 DAYS. PT PRESENTING DIAPHORETIC AND PALE. PATIENT REPORTS HISTORY OF GILBERT'S SYNDROME. STATES PAST HOSPITAL ADMISSION HERE FOR SVT WAS PLACED ON METOPROLOL AND HYDROXYZINE FOR ANXIETY. DENIES CHEST PAIN, SHORTNESS OF BREATH, DIZZINESS, NAUSEA, VOMITING, DIARRHEA, RECENT TRAVEL OR KNOWN ILL CONTACTS. NOTES NO FEVER OR CHILLS. Time Seen by MD: 19:37 Primary Care Provider: LUZ Reviewed Notes: Nurses Notes, Medications, Allergies Allergies: Coded Allergies: Peanut-containing Drug Products (Verified Allergy, Severe, 08/07/24) Penicillins (Verified Allergy, Unknown, 07/17/23) Home Meds Active Scripts Metoprolol Succinate (Toprol Xl) 25 Mg Tab, 25 MG PO DAILY for 30 Days, #30 TAB 3 Refills Prov:FREIDA JANG MD 08/08/24 Reported Medications Hydroxyzine Hcl (Hydroxyzine Hcl) 10 Mg Tab, 1 TAB PO DAILY 08/07/24 Information Source: Patient Past Medical History PAST MEDICAL HISTORY: Anxiety Surgical History: Denies all surgeries Family History Family History: Reviewed,noncontributory to illness Social History Smoker: Non-Smoker Alcohol: Occasionally Drugs: Denies Drug Use Lives In: Home Constitutional: reports: fatigue, weakness; denies: chills, diaphoresis, fever, malaise, sweats, others EENTM: denies: blurred vision, double vision, ear bleeding, ear discharge, ear drainage, ear pain, ear ringing, eye pain, eye redness, hearing loss, mouth pain, mouth swelling, nasal discharge, nose bleeding, nose congestion, nose pain, photophobia, tearing, throat pain, throat swelling, voice changes, others Respiratory: denies: cough, hemoptysis, orthopnea, SOB at rest, shortness of breath, SOB with excertion, stridor, wheezing, others Cardiovascular: denies: chest pain, dizzy spells, diaphoresis, Dyspnea on exertion, edema, irregular heart beat, left arm pain, lightheadedness, palpitations, PND, syncope, others Gastrointestinal: denies: abdomen distended, abdominal pain, blood streaked bowels, constipated, diarrhea, dysphagia, difficulty swallowing, hematemesis, melena, nausea, poor appetite, poor fluid intake, rectal bleeding, rectal pain, vomiting, others Genitourinary: denies: burning, dysuria, flank pain, frequency, hematuria, incontinence, penile discharge, penile sore, pain, testicle pain, testicle swelling, urgency, others Neurological: denies: dizziness, fainting, headache, left sided numbness, left sided weakness, numbness, paresthesia, pre-existing deficit, right sided numbness, right sided weakness, seizure, speech problems, tingling, tremors, weakness, others Musculoskeletal: denies: back pain, gout, joint pain, joint swelling, muscle pain, muscle stiffness, neck pain, others Integumetry: denies: bruises, change in color, change in hair/nails, dryness, laceration, lesions, lumps, rash, wounds, others Allergic/Immunocompromised: denies: Difficulty Healing, Frequent Infections, Hives, Itching, others Hematologic/Lymphatic: denies: anemia, blood clots, easy bleeding, easy bruising, swollen glands, others Endocrine: denies: excessive hunger, excessive sweating, excessive thirst, excessive urination, flushing, intolerance to cold, intolerance to heat, unexplained weight gain, unexplained weight loss, others Psychiatric: denies: anxiety, bipolar disorder, depression, hopeless, panic disorder, schizophrenia, sleepless, suicidal, others Physical Exam General Appearance: No Apparent Distress, Normal HEENT: Normal ENT Inspection, Pharynx Normal, TMs Normal Neck: Full Range of Motion, Non-Tender, Normal Respiratory: Chest Non-Tender, Lungs Clear, No Accessory Muscle Use, No Respiratory Distress, Normal Breath Sounds Cardiovascular: No Edema, No JVD, No Murmur, No Gallop, Normal Peripheral Pulses, Regular Rate/Rhythm Breast Exam: Deferred Gastrointestinal: No Organomegaly, Non Tender, No Pulsatile Mass, Normal Bowel Sounds, Soft Genitalia: Deferred Pelvic: Deferred Rectal: Deferred Extremities: No calf tenderness, Normal capillary refill, Normal inspection, Normal range of motion, Non-tender, No pedal edema Musculoskeletal : Apperance: Normal Neurologic: Alert, bail bondsman II-XII nml as Tested, No Motor Deficits, Normal Affect, Normal Mood, No Sensory Deficits Cerebellar Function: Normal Reflexes: Normal Skin: Dry, Normal Color, Warm Lymphatic: No Adenopathy Was a procedure done? Was a procedure done?: No Differential Dx Considerations may include: SVT X-Ray, Labs, Meds, VS Vital Signs Date Time Temp Pulse Resp B/P (MAP) Pulse Ox O2 Delivery O2 Flow Rate FiO2 08/26/24 00:34 97.9 75 16 139/79 (99) 99 97.9 08/25/24 22:18 97.8 72 19 135/95 (108) 98 97.8 08/25/24 22:18 72 19 98 Room Air 08/25/24 20:08 98.5 107 18 144/90 (108) 98 98.5 08/25/24 20:02 94 Lab Test 08/25/24 22:40 08/25/24 19:59 08/25/24 19:56 Range/Units Urine Color Light-yellow Yellow Urine Clarity Clear Clear Urine pH 6.5 5.0-9.0 Urine Specific [place] 1.012 1.001-1.035 Urine Protein Negative Negative Urine Ketones 1+ H Negative Urine Blood Negative Negative /uL Urine Nitrite Negative Negative Urine Bilirubin Negative Negative Urine Urobilinogen Normal Negative mg/dL Urine Leukocyte Esterase Negative Negative /uL Urine RBC 1 0 - 3 /hpf Urine Microscopic WBC < 1 0-3 /HPF Urine Squamous Epithelial Cells None seen <5 /hpf Urine Bacteria None seen None Seen /hpf Urine Glucose Normal Normal mg/dL White Blood Count 7.1 4.4-10.8 10^3/uL Red Blood Count 5.44 4.5-5.90 10^6/uL Hemoglobin 16.4 13.5-17.5 g/dL Hematocrit 47.7 41.0-53.0 % Mean Corpuscular Volume 87.8 80.0-100.0 fL Mean Corpuscular Hemoglobin 30.2 28.0-32.0 pg Mean Corpuscular Hemoglobin Concent 34.4 32.0-36.0 g/dL Red Cell Distribution Width 12.6 11.8-14.3 % Platelet Count 209 140-450 10^3/uL Mean Platelet Volume 6.9 6.9-10.8 fL Neutrophils (%) (Auto) 73.9 37.0-80.0 % Lymphocytes (%) (Auto) 17.8 10.0-50.0 % Monocytes (%) (Auto) 6.6 0.0-12.0 % Eosinophils (%) (Auto) 1.2 0.0-7.0 % Basophils (%) (Auto) 0.5 0.0-2.0 % Neutrophils # (Auto) 5.2 1.6-8.6 10 ^3/uL Lymphocytes # (Auto) 1.3 0.4-5.4 10 ^3/uL Monocytes # (Auto) 0.5 0-1.3 10 ^3/uL Eosinophils # (Auto) 0.1 0-0.8 10 ^3/uL Basophils # (Auto) 0 0-0.2 10 ^3/uL Nucleated Red Blood Cells 0.2 % Sodium Level 141 136-145 mmol/L Potassium Level 3.9 3.5-5.1 mmol/L Chloride Level 103 98-107 mmol/L Carbon Dioxide Level 25 20-31 mmol/L Anion Gap 13 5-15 Blood Urea Nitrogen 13 9-23 mg/dL Creatinine 1.25 0.700-1.30 mg/dL Glomerular Filtration Rate Calc 80 >90 mL/min BUN/Creatinine Ratio 10.4 10.0-20.0 Serum Glucose 107 H 74-106 mg/dL Calcium Level 10.6 H 8.7-10.4 mg/dL Magnesium Level 1.9 1.6-2.6 mg/dL Total Bilirubin 3.6 H 0.2-1.0 mg/dL Aspartate Amino Transferase (AST) 20 13-40 U/L Alanine Aminotransferase (ALT) 22 7-40 U/L Alkaline Phosphatase 56 46-116 U/L Troponin I High Sensitivity < 3 L </=54 ng/L Total Protein 7.0 5.7-8.2 g/dL Albumin 5.1 H 3.2-4.8 g/dL Thyroid Stimulating Hormone (TSH) 2.66 0.55-4.78 uIU/mL POC Glucose 104 70-106 mg/dl Current Medications Medications (Trade) Dose Ordered Sig/Sherrie Route Start Time Stop Time Status Last Admin Sodium Chloride 1,000 ml @ 1,000 mls/hr Q1H ONCE IV 08/25/24 20:45 08/25/24 21:44 DC 08/25/24 20:45 X-Ray, Labs, Meds, VS Comment Bilirubin 3.1 patient with history of Gilbert syndrome UA positive ketones likely elevated secondary to dehydration and Gilbert's syndrome.. CBC CMP magnesium TSH within normal limits. Patient was given a 1 L of fluids does report improvement in symptoms requesting discharge at this time. Advised to rest increase fluids with electrolytes. Advised to follow up with his PCP within 2-3 days for repeat bilirubin level. Advised on ER return precautions patient indicates understanding and agrees with discharge plan of care. Time of 1ST Reevaluation: 19:37 Reevaluation 1ST: Unchanged Time of 2ND Reevaluation: 00:56 Reevaluation 2ND: Improved Patient Education/Counseling: Diagnosis, Treatment, Prognosis, Need For Follow Up Family Education/Counseling: No Family Present SEPSIS Sepsis Screen Physician Orders Electrocardigram (08/25/24 19:47) Electrocardigram (08/25/24 20:47) Heplock Iv (08/25/24 ) Vital Signs Date Time Temp Pulse Resp B/P (MAP) Pulse Ox O2 Delivery O2 Flow Rate FiO2 08/26/24 00:34 97.9 75 16 139/79 (99) 99 97.9 08/25/24 22:18 97.8 72 19 135/95 (108) 98 97.8 08/25/24 22:18 72 19 98 Room Air 08/25/24 20:08 98.5 107 18 144/90 (108) 98 98.5 08/25/24 20:02 94 Laboratory Tests Test 08/25/24 19:59 White Blood Count 7.1 10^3/uL (4.4-10.8) Medications Medications Dose Ordered Sig/Sherrie Route Start Time Stop Time Status Last Admin Dose Admin Sodium Chloride 1,000 ml @ 1,000 mls/hr Q1H ONCE IV 08/25/24 20:45 08/25/24 21:44 DC 08/25/24 20:45 Departure 1 Departure Time of Disposition: 00:51 Impression: Primary Impression: Dehydration Disposition: 01 HOME / SELF CARE / HOMELESS Condition: Stable Discharged With: Self Critical Care Note Critical Care Time?: No Stability Stability form required: MICAH Red Aug 25, 2024 19:48
[2024-08-25 20:10] LABS: Hematocrit 47.7 % (41.0-53.0); Hemoglobin 16.4 g/dL (13.5-17.5); Mean Corpuscular Hemoglobin 30.2 pg (28.0-32.0); Mean Corpuscular Volume 87.8 fL (80.0-100.0); Nucleated Red Blood Cells % 0.2 %
[2024-08-25 20:28] LABS: Alanine Aminotransferase 22 U/L (7-40); Albumin 5.1 g/dL (3.2-4.8); Alkaline Phosphatase 56 U/L (46-116); Anion Gap 13 (5-15); BUN/Creatinine Ratio 10.4 (10.0-20.0); Blood Urea Nitrogen 13 mg/dL (9-23); Calcium 10.6 mg/dL (8.7-10.4); Carbon Dioxide 25 mmol/L (20-31); Chloride 103 mmol/L (98-107); Glucose 107 mg/dL (74-106); Magnesium 1.9 mg/dL (1.6-2.6); Potassium 3.9 mmol/L (3.5-5.1); Sodium 141 mmol/L (136-145); Total Protein 7.0 g/dL (5.7-8.2)
[2024-08-25 20:29] LABS: Bilirubin, Total 3.6 mg/dL (0.2-1.0)
[2024-08-25] MEDS: SODIUM CHLORIDE 0.9% 1,000 ML IV ONE (20:45)
[2024-08-26 00:34] VITALS: BP 139/79; PULSE 75; RESP 16; TEMP 97.9; O2SAT 99
[2024-08-26 00:42] LABS: Urine Protein, UAD Negative (Negative)
--- NOTE | 2024-08-26 23:20 | ECG ---
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
[2024-08-26] MEDS ORDERED: BUSP5TAB51 PO (23:30)
[2024-08-26] MEDS ORDERED: FAMO-161 PO (23:30)
== END 2024-08-26 01:00 | disposition home or self-care (01) ==
LOC: ER 19:41
DX: E86.0 Dehydration (principal); F41.9 Anxiety disorder, unspecified; Z79.899 Other long term (current) drug therapy; Z88.0 Allergy status to penicillin; Z91.010 Allergy to peanuts
CPT/HCPCS: 36415; 80053; 81001; 82947; 83735; 84443; 84484; 85025; 93005; 96360; 96361; 99284; J7030; 82962

== ENCOUNTER 2024-08-26 18:32 | Emergency (ER) | payer MEDICAID ==
[~2024-08-26] VITALS: Ht 182.9 cm; Wt 79.2 kg
--- NOTE | 2024-08-26 19:05 | ED.PDOC ---
GI ASSESSMENT HPI Comments 29-YEAR-OLD MALE PRESENTS TO THE ED. C/O GENERAL WEAKNESS X 08/21/24. PER PT STATES UNABLE TO SLEEP, LOSS OF APEPTITE, DRY MOUTH, AND NAUSEA. PATIENT STATES SYMPTOMS STARTED AFTER EATING A POSSIBLY CONTAMINATED TURKEY SANDWICH THAT HE HAD IN THE REFRIGERATOR. PATIENT WAS SEEN HERE YESTERDAY BY THIS PROVIDER IN WAS GIVEN IV FLUIDS, URINE SHOWED KETONES, WITH MILD DEHYDRATION. ELEVATED BILIRUBIN AT 3.1 WITH HISTORY OF GILBERT'S SYNDROME. PATIENT ALSO STATED TODAY WHICH SHE DID NOT MENTIONED YESTERDAY HIS LAST APPOINTMENT WITH HIS PCP HIS BLOOD WORK SHOWED ELEVATED IRON LEVELS AND WAS DIAGNOSED WITH HEMOCHROMATOSIS AND WAS TO FOLLOW UP WITH HIS PCP FOR REPEAT BLOOD WORK. HE DENIES CHEST PAIN, DIFFICULTY BREATHING, SHORTNESS OF BREATH, DIARRHEA, OR RECENT TRAVEL. REPORTS NO RECENT FEVERS OR CHILLS. DENIES ANY RECENT TRAVEL. Chief Complaint: General Weakness Time Seen by MD: 18:54 Primary Care Provider: LUZ Reviewed Notes: Nurses Notes, Medications, Allergies Allergies: Coded Allergies: Peanut-containing Drug Products (Verified Allergy, Severe, 08/07/24) Penicillins (Verified Allergy, Unknown, 07/17/23) Home Meds Active Scripts Metoprolol Succinate (Toprol Xl) 25 Mg Tab, 25 MG PO DAILY for 30 Days, #30 TAB 3 Refills Prov:FREIDA JANG MD 08/08/24 Reported Medications Hydroxyzine Hcl (Hydroxyzine Hcl) 10 Mg Tab, 1 TAB PO DAILY 08/07/24 Information Source: Patient Mode of Arrival: Ambulatory Past Medical History PAST MEDICAL HISTORY: Anxiety Surgical History: Denies all surgeries Family History Family History: Reviewed,noncontributory to illness Social History Smoker: Non-Smoker Alcohol: Occasionally Drugs: Denies Drug Use Lives In: Home Constitutional: reports: weakness; denies: chills, diaphoresis, fatigue, fever, malaise, sweats, others EENTM: denies: blurred vision, double vision, ear bleeding, ear discharge, ear drainage, ear pain, ear ringing, eye pain, eye redness, hearing loss, mouth pain, mouth swelling, nasal discharge, nose bleeding, nose congestion, nose pain, photophobia, tearing, throat pain, throat swelling, voice changes, others Respiratory: denies: cough, hemoptysis, orthopnea, SOB at rest, shortness of breath, SOB with excertion, stridor, wheezing, others Cardiovascular: denies: chest pain, dizzy spells, diaphoresis, Dyspnea on exertion, edema, irregular heart beat, left arm pain, lightheadedness, palpitations, PND, syncope, others Gastrointestinal: reports: nausea; denies: abdomen distended, abdominal pain, blood streaked bowels, constipated, diarrhea, dysphagia, difficulty swallowing, hematemesis, melena, poor appetite, poor fluid intake, rectal bleeding, rectal pain, vomiting, others Genitourinary: denies: burning, dysuria, flank pain, frequency, hematuria, incontinence, penile discharge, penile sore, pain, testicle pain, testicle swelling, urgency, others Neurological: denies: dizziness, fainting, headache, left sided numbness, left sided weakness, numbness, paresthesia, pre-existing deficit, right sided numbness, right sided weakness, seizure, speech problems, tingling, tremors, weakness, others Musculoskeletal: denies: back pain, gout, joint pain, joint swelling, muscle pain, muscle stiffness, neck pain, others Integumetry: denies: bruises, change in color, change in hair/nails, dryness, laceration, lesions, lumps, rash, wounds, others Allergic/Immunocompromised: denies: Difficulty Healing, Frequent Infections, Hives, Itching, others Hematologic/Lymphatic: denies: anemia, blood clots, easy bleeding, easy bruising, swollen glands, others Endocrine: denies: excessive hunger, excessive sweating, excessive thirst, excessive urination, flushing, intolerance to cold, intolerance to heat, unexplained weight gain, unexplained weight loss, others Psychiatric: denies: anxiety, bipolar disorder, depression, hopeless, panic disorder, schizophrenia, sleepless, suicidal, others Physical Exam General Appearance: No Apparent Distress, Normal HEENT: Normal ENT Inspection, Pharynx Normal, TMs Normal Neck: Full Range of Motion, Non-Tender Respiratory: Lungs Clear, No Respiratory Distress, Normal Breath Sounds Cardiovascular: No Edema, No JVD, No Murmur, No Gallop, Normal Peripheral Pulses, Regular Rate/Rhythm Breast Exam: Deferred Gastrointestinal: No Organomegaly, Non Tender, No Pulsatile Mass, Normal Bowel Sounds, Soft Genitalia: Deferred Pelvic: Deferred Rectal: Deferred Extremities: Normal capillary refill, Normal inspection, Normal range of doreen on, Non-tender, No pedal edema Musculoskeletal : Apperance: Normal Neurologic: Alert, No Motor Deficits, Normal Affect, Normal Mood, No Sensory Deficits Cerebellar Function: Normal Reflexes: Normal Skin: Dry, Normal Color, Warm Lymphatic: No Adenopathy Was a procedure done? Was a procedure done?: No GI differential Dx Differential Diagnosis: Gastritis/PUD, Gastroenteritis, Inflammatory BD, Electrolyte Imbalance, Food Poisoning, Bacterial, Parasitic, Viral X-Ray, Labs, Meds, VS Vital Signs Date Time Temp Pulse Resp B/P (MAP) Pulse Ox O2 Delivery O2 Flow Rate FiO2 08/26/24 22:42 70 14 99 Room Air* 0 21 08/26/24 22:08 97.6 70 14 133/72 (92) 99 97.6 08/26/24 18:59 98.7 86 18 139/90 (106) 95 98.7 Lab Test 08/26/24 19:35 08/26/24 19:30 08/26/24 18:55 Range/Units Iron Level 107 65-175 ug/dL Total Iron Binding Capacity 323 250-425 ug/dL Percent Iron Saturation 33.1 20-55 % Total Bilirubin 3.3 H 0.2-1.0 mg/dL Direct Bilirubin 0.5 H <0.3 mg/dL Urine Color Light-yellow Yellow Urine Clarity Clear Clear Urine pH 7.0 5.0-9.0 Urine Specific [place] 1.010 1.001-1.035 Urine Protein Negative Negative Urine Ketones Negative Negative Urine Blood Negative Negative /uL Urine Nitrite Negative Negative Urine Bilirubin Negative Negative Urine Urobilinogen Normal Negative mg/dL Urine Leukocyte Esterase Negative Negative /uL Urine RBC <1 0 - 3 /hpf Urine Microscopic WBC 0-3 /HPF Urine Squamous Epithelial Cells None seen <5 /hpf Urine Bacteria None seen None Seen /hpf Urine Glucose Normal Normal mg/dL POC Glucose 115 H 70-106 mg/dl Current Medications Medications (Trade) Dose Ordered Sig/Sherrie Route Start Time Stop Time Status Last Admin Sodium Chloride 1,000 ml @ 1,000 mls/hr Q1H ONCE IV 08/26/24 19:15 08/26/24 20:14 DC 08/26/24 19:15 Famotidine (Pepcid Injection) 20 mg ONCE ONCE IV 08/26/24 19:15 08/26/24 19:16 DC 08/26/24 22:24 Metoclopramide HCl (Reglan Injection) 5 mg ONCE ONCE IV 08/26/24 19:15 08/26/24 19:16 DC 08/26/24 22:28 Lorazepam (Ativan Inj) 0.5 mg ONCE ONCE IV 08/26/24 22:45 08/26/24 22:46 DC 08/26/24 22:36 Time of 1ST Reevaluation: 19:04 Reevaluation 1ST: Unchanged Patient Education/Counseling: Diagnosis, Treatment, Prognosis, Need For Follow Up Family Education/Counseling: No Family Present SEPSIS Sepsis Screen Date sepsis recognized/suspect: Aug 26, 2024 Time Sepsis recognized/suspect: 1850 Recent Procedure: No On Antibiotic Therapy: No Respiratory Rate >20: No Heart Rate >90: No Temp<36 C (96.8 F) or >38.3 C: No SBP <90 or MAP <65 mmHG: No New Acute Mental Status Change: No Is the patient on CPAP, BIPAP,: No Vital Signs Date Time Temp Pulse Resp B/P (MAP) Pulse Ox O2 Delivery O2 Flow Rate FiO2 08/26/24 22:42 70 14 99 Room Air* 0 21 08/26/24 22:08 97.6 70 14 133/72 (92) 99 97.6 08/26/24 18:59 98.7 86 18 139/90 (106) 95 98.7 Medications Medications Dose Ordered Sig/Sherrie Route Start Time Stop Time Status Last Admin Dose Admin Famotidine 20 mg ONCE ONCE IV 08/26/24 19:15 08/26/24 19:16 DC 08/26/24 22:24 Lorazepam 0.5 mg ONCE ONCE IV 08/26/24 22:45 08/26/24 22:46 DC 08/26/24 22:36 Metoclopramide HCl 5 mg ONCE ONCE IV 08/26/24 19:15 08/26/24 19:16 DC 08/26/24 22:28 Sodium Chloride 1,000 ml @ 1,000 mls/hr Q1H ONCE IV 08/26/24 19:15 08/26/24 20:14 DC 08/26/24 19:15 Departure 1 Departure Time of Disposition: 23:28 Impression: Primary Impression: Anxiety Additional Impression: Gastroenteritis Disposition: 01 HOME / SELF CARE / HOMELESS Condition: Stable e-Prescriptions Famotidine (Pepcid AC) 20 Mg Tab 20 MG PO BID for 7 Days, #14 TAB Prov: MICAH RAMIREZ 08/26/24 Buspirone Hcl (Buspirone Hcl) 5 Mg Tab 1 TAB PO BID PRN for 10 Days, #20 TAB Prov: MICAH RAMIREZ 08/26/24 Discharged With: Self Critical Care Note Critical Care Time?: No Stability Stability form required: No MICAH RAMIREZ Aug 26, 2024 19:05
[2024-08-26] MEDS: SODIUM CHLORIDE 0.9% 1,000 ML IV ONE (19:15)
[2024-08-26 19:41] LABS: Urine Protein, UAD Negative (Negative)
[2024-08-26 20:15] LABS: Bilirubin, Direct 0.5 mg/dL (<0.3); Bilirubin, Total 3.3 mg/dL (0.2-1.0)
[2024-08-26 21:14] LABS: Iron 107.0 ug/dL (65-175)
[2024-08-26 21:17] LABS: Total Iron Binding Capacity 323.0 ug/dL (250-425)
[2024-08-26 22:08] VITALS: BP 133/72; TEMP 97.6
[2024-08-26] MEDS: FAMOTIDINE (10MG/ML) 2ML VL IV ONE (22:24)
[2024-08-26] MEDS: METOCLOPRAMIDE HCL 5MG/ml INJ 2ml VIAL IV ONE (22:28)
[2024-08-26] MEDS: LORazepam 2MG/ML-1ML VIAL IV ONE (22:36)
[2024-08-26 22:42] VITALS: PULSE 70; RESP 14; O2SAT 99
[2024-08-26] MEDS ORDERED: FAMO-161 PO (23:30)
[2024-08-26] MEDS ORDERED: BUSP5TAB51 PO (23:30)
[2024-08-26] MEDS: LORazepam 0.5 MG TAB PO ONE (23:50)
== END 2024-08-26 23:55 | disposition home or self-care (01) ==
LOC: ER 18:32
DX: F41.9 Anxiety disorder, unspecified (principal); K52.9 Noninfective gastroenteritis and colitis, unspecified; F10.90 Alcohol use, unspecified, uncomplicated; Y90.9 Presence of alcohol in blood, level not specified; Z88.0 Allergy status to penicillin; Z79.899 Other long term (current) drug therapy
CPT/HCPCS: 36415; 81001; 82247; 82248; 82947; 83540; 83550; 96361; 96374; 96375; 99284; J2060; J2765; J3490; J7030; 82962

== ENCOUNTER 2024-11-28 11:00 | Emergency (ER) | payer MEDICAID ==
[~2024-11-28] VITALS: Ht 182.9 cm; Wt 78.0 kg
[2024-11-28 11:14] VITALS: PULSE 196; RESP 11; TEMP 98.4; O2SAT 99
--- NOTE | 2024-11-28 11:16 | ED.PDOC ---
HPI Comments This is a 29 year old male presenting to the ED with chief complaint of SVT. Patient reports at around 0820, he got home from work and then he felt a light feeling in his chest and abdomen before his heart started to beat hard and fast. Patient relays that he was seen in July for SVT and today feels similar to what it was before. Patient states he is currently on psychiatric medication. Patient denies any chest pain, SOB, dizziness, or syncope. Chief Complaint: Palpitations Time Seen by MD: 11:14 Primary Care Provider: LUZ Reviewed Notes: Nurses Notes, Medications, Allergies Allergies: Coded Allergies: Peanut-containing Drug Products (Verified Allergy, Severe, 08/07/24) Penicillins (Verified Allergy, Unknown, 07/17/23) Home Meds Active Scripts Metoprolol Succinate (Toprol Xl) 25 Mg Tab, 25 MG PO DAILY for 30 Days, #30 TAB 3 Refills Prov:FREIDA JANG MD 08/08/24 Reported Medications Hydroxyzine Hcl (Hydroxyzine Hcl) 10 Mg Tab, 1 TAB PO DAILY 08/07/24 Information Source: Patient Mode of Arrival: Ambulatory Severity: Moderate Timing: Hours Duration: Since onset Prehospital treatment: None Location: Chest (L) Radiation: No Radiation Onset: At Rest History of: Similar pain in past Past Medical History PAST MEDICAL HISTORY: Anxiety Past Medical History (Other): SVT Surgical History: Denies all surgeries Family History Family History: Reviewed,noncontributory to illness Social History Smoker: Non-Smoker Alcohol: Occasionally Drugs: Denies Drug Use Lives In: Home Constitutional: denies: chills, diaphoresis, fatigue, fever, malaise, sweats, weakness, others EENTM: denies: blurred vision, double vision, ear bleeding, ear discharge, ear drainage, ear pain, ear ringing, eye pain, eye redness, hearing loss, mouth pain, mouth swelling, nasal discharge, nose bleeding, nose congestion, nose pain, photophobia, tearing, throat pain, throat swelling, voice changes, others Respiratory: denies: cough, hemoptysis, orthopnea, SOB at rest, shortness of breath, SOB with excertion, stridor, wheezing, others Cardiovascular: reports: irregular heart beat; denies: chest pain, dizzy spells, diaphoresis, Dyspnea on exertion, edema, left arm pain, lightheadedness, palpitations, PND, syncope, others Gastrointestinal: denies: abdomen distended, abdominal pain, blood streaked bowels, constipated, diarrhea, dysphagia, difficulty swallowing, hematemesis, melena, nausea, poor appetite, poor fluid intake, rectal bleeding, rectal pain, vomiting, others Genitourinary: denies: burning, dysuria, flank pain, frequency, hematuria, incontinence, penile discharge, penile sore, pain, testicle pain, testicle swelling, urgency, others Neurological: denies: dizziness, fainting, headache, left sided numbness, left sided weakness, numbness, paresthesia, pre-existing deficit, right sided numbness, right sided weakness, seizure, speech problems, tingling, tremors, weakness, others Musculoskeletal: denies: back pain, gout, joint pain, joint swelling, muscle pain, muscle stiffness, neck pain, others Integumetry: denies: bruises, change in color, change in hair/nails, dryness, laceration, lesions, lumps, rash, wounds, others Allergic/Immunocompromised: denies: Difficulty Healing, Frequent Infections, Hives, Itching, others Hematologic/Lymphatic: denies: anemia, blood clots, easy bleeding, easy bruising, swollen glands, others Endocrine: denies: excessive hunger, excessive sweating, excessive thirst, excessive urination, flushing, intolerance to cold, intolerance to heat, unexplained weight gain, unexplained weight loss, others Psychiatric: denies: anxiety, bipolar disorder, depression, hopeless, panic disorder, schizophrenia, sleepless, suicidal, others All Other Systems: Reviewed and Negative Physical Exam General Appearance: No Apparent Distress, Normal HEENT: Normal ENT Inspection, Pharynx Normal, TMs Normal Neck: Full Range of Motion, Non-Tender, Normal, Normal Inspection Respiratory: Chest Non-Tender, Lungs Clear, No Accessory Muscle Use, No Respiratory Distress, Normal Breath Sounds Cardiovascular: No Edema, No JVD, No Murmur, No Gallop, Normal Peripheral Pulses, Tachycardia Breast Exam: Deferred Gastrointestinal: No Organomegaly, Non Tender, No Pulsatile Mass, Normal Bowel Sounds, Soft Genitalia: Deferred Pelvic: Deferred Rectal: Deferred Extremities: No calf tenderness, Normal capillary refill, Normal inspection, Normal range of motion, Non-tender, No pedal edema Musculoskeletal : Apperance: Normal Neurologic: Alert, technician's helper II-XII nml as Tested, No Motor Deficits, Normal Affect, Normal Mood, No Sensory Deficits Cerebellar Function: Normal Reflexes: Normal Skin: Dry, Normal Color, Warm Lymphatic: No Adenopathy Was a procedure done? Was a procedure done?: No CP Differential Dx Differential Diagnosis: VT, PAC's, PSVT, PVC's Differential Diagnosis: HTN Essential, HTN Accelerated Differential Diagnosis: Gastritis X-Ray, Labs, Meds, VS Vital Signs Date Time Temp Pulse Resp B/P (MAP) Pulse Ox O2 Delivery O2 Flow Rate FiO2 11/28/24 12:09 101 11/28/24 11:26 155 11/28/24 11:14 196 11 99 Room Air* 0 21 11/28/24 11:14 98.4 196 11 127/73 (91) 99 98.4 11/28/24 11:05 195 11/28/24 11:05 98.1 195 18 138/76 100 98.1 Current Medications Medications (Trade) Dose Ordered Sig/Sherrie Route Start Time Stop Time Status Last Admin Sodium Chloride 1,000 ml @ 1,000 mls/hr Q1H ONCE IV 11/28/24 11:15 11/28/24 12:14 DC 11/28/24 11:24 Adenosine (Adenosine) 12 mg ONCE ONCE IV 11/28/24 11:15 11/28/24 11:16 DC 11/28/24 11:23 Time of 1ST Reevaluation: 12:13 Reevaluation 1ST: Unchanged Patient Education/Counseling: Diagnosis, Treatment Family Education/Counseling: No Family Present SEPSIS Sepsis Screen Physician Orders Electrocardigram (11/28/24 14:13) Vital Signs Date Time Temp Pulse Resp B/P (MAP) Pulse Ox O2 Delivery O2 Flow Rate FiO2 11/28/24 12:09 101 11/28/24 11:26 155 11/28/24 11:14 196 11 99 Room Air* 0 21 11/28/24 11:14 98.4 196 11 127/73 (91) 99 98.4 11/28/24 11:05 195 11/28/24 11:05 98.1 195 18 138/76 100 98.1 Medications Medications Dose Ordered Sig/Sherrie Route Start Time Stop Time Status Last Admin Dose Admin Adenosine 12 mg ONCE ONCE IV 11/28/24 11:15 11/28/24 11:16 DC 11/28/24 11:23 Sodium Chloride 1,000 ml @ 1,000 mls/hr Q1H ONCE IV 11/28/24 11:15 11/28/24 12:14 DC 11/28/24 11:24 Departure 1 Departure Time of Disposition: 13:41 (Patient presented in SVT. Patient was converted with 12 mg of adenosine. We will discharge patient home with outpatient follow up. Patient has an appointment with his pipe line gauger tomorrow morning) Impression: Primary Impression: SVT (supraventricular tachycardia) Disposition: HOME / SELF CARE / HOMELESS Condition: Stable Additional Instructions: It is important to see your pipe line gauger tomorrow. Discharged With: Self Critical Care Note Critical Care Time?: Yes Critical care comment: SVT Authorized and Performed by: Javier Ivan MD Total critical care time: Approximately 38 minutes Due to a high probability of clinically significant, life threatening deterioration, the patient required my highest level of preparedness to intervene emergently and I personally spent this critical care time directly and personally managing the patient. This critical care time included obtaining a history; examining the patient; pulse oximetry; ordering and review of studies; arranging urgent treatment with development of a management plan; evaluation of patient's response to treatment; frequent reassessment; and, discussions with other providers. This critical care time was performed to assess and manage the high probability of imminent, life-threatening deterioration that could result in multi-organ failure. It was exclusive of separately billable procedures and treating other patients and teaching time. Please see my other sections and the rest of the note for further information on patient assessment and treatment. Stability Stability form required: No Heart Score Heart Score: Heart Score Response (Comments) Value History Moderate Suspicious 1 EKG Repolarization Disturb 1 Age <45 0 Risk Factors No known risk factors 0 Troponin Normal limit 0 Total 2 I personally scribed for JAVIER IVAN MD ([email or web address]) on 11/28/24 at 11:16. Electronically submitted by Chato Harris ([email or web address]). JAVIER IVAN MD Nov 28, 2024 11:16
[2024-11-28] MEDS: ADENOSINE 6 MG/2 ML INJ IV ONE (11:23)
[2024-11-28] MEDS: SODIUM CHLORIDE 0.9% 1,000 ML IV ONE (11:24)
--- NOTE | 2024-11-28 12:18 | ECG ---
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
--- NOTE | 2024-11-28 12:18 | ECG ---
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
[2024-11-28 13:47] VITALS: BP 136/89; PULSE 100; RESP 15; O2SAT 100
--- NOTE | 2024-12-06 07:56 | ECG ---
[facility] Test Date: 2024-11-28 Test Time: 11:05:22 Pat Name: ELISE GARCIA Department: ED Room: Gender: M Manager Ambulatory: dr PINTO: 1995 Requested By: JAVIER LAZO Order Number: [id number] Reading MD: Nico Luna Measurements Intervals [place] Rate: 195 P: 0 [place]: 0 QRS: 106 QRSD: 89 T: 38 QT: 273 QTc: 492 Interpretive Statements Supraventricular tachycardia Borderline right axis deviation ST depression, probably rate related Electronically Signed On 12-08-2024 17:52:09 PDT by Nico Luna Please click the below link to view image of tracing.
== END 2024-11-28 13:58 | disposition home or self-care (01) ==
LOC: ER 11:00
DX: I47.10 Supraventricular tachycardia, unspecified (principal); F41.9 Anxiety disorder, unspecified; Z79.899 Other long term (current) drug therapy; Z88.0 Allergy status to penicillin; Z91.010 Allergy to peanuts
CPT/HCPCS: 93005; 96361; 96374; 99291; J0153; J7030